=== PATIENT | male | born 1995 | race American Indian/Alaskan Native ===

== ENCOUNTER 2020-08-26 11:22 | Emergency (ER) | payer MEDICAID ==
--- NOTE | 2020-08-26 12:05 | XRay Report ---
RIGHT FINGER(S) 3 VIEW(S) INDICATION / CLINICAL INFORMATION: finger lac COMPARISON: None available. FINDINGS: BONES / JOINT(S): Tiny osseous fragment at the terminal tuft of the forefinger distal phalanx consist ent with an acute mildly displaced fracture. No dislocation. No significant arthritis. SOFT TISSUES: Right distal forefinger laceration with edema and adjacent bandaging. ADDITIONAL FINDINGS: None. Signer Name: Sandro Salcido MD Signed: 08/26/2020 12:01 PM Workstation Name: [id number]
--- NOTE | 2020-08-26 12:14 | Emergency Department Report ---
Blank Doc - Documentation Documentation: Patient presents with right index laceration with deformity noted to the index finger. Family member stated it happened prior to arrival today from a bed. Patient is mentally delayed and unable to answer questions or speak. Family member denies patient being up-to-date with tetanus. 1- This initial assessment/diagnostic orders/clinical plan/ treatment(s) is/are subject to change based on pt's health status, clinical progression and re- assessment by fellow clinical providers in the ED. Further treatment and workup at subsequent clinical provers discretion. Patient/guardians urged not to elope from ED as their condition may be serious if not clinically assessed and managed. 2-tetanus 3-xray
[2020-08-26 12:24] VITALS: BP 121/74
[2020-08-26] MEDS ORDERED: TETANUS,DIPH,PERTUSS(ACELL) VACCINE 0.5 ML SYRINGE IM ONE (14:27)
--- NOTE | 2020-08-26 19:48 | Emergency Department Report ---
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 Mom was able to control yesterday but when she changed the bandages this morning states that the bleeding restarted and she has been unable to stop it open to this point so she decided to come in for further evaluation and treatment options. Tetanus shot not up-to-date report no bite to the MD Complaint: Injury to:: right, finger -: days(s) (Occurred yesterday) Improves With: none Worsens With: none Associated Symptoms: denies other symptoms - Related Data Previous Rx's Medication Instructions Recorded Last Taken Type cephALEXin [Keflex] 500 mg PO Q6HR #40 capsule 08/26/20 Unknown Rx Allergies Allergy/AdvReac Type Severity Reaction Status Date / Time No Known Allergies Allergy Verified 08/26/20 12:23 ED Review of Systems ROS: Stated complaint: RT INDEX FINGER Other details as noted in HPI Comment: All other systems reviewed and negative ED Past Medical Hx - Social History Smoking Status: Never Smoker Substance Use Type: None - Medications Home Medications: Home Medications Medication Instructions Recorded Confirmed Last Taken Type cephALEXin [Keflex] 500 mg PO Q6HR #40 capsule 08/26/20 Unknown Rx ED Physical Exam - General Limitations: Other General appearance: alert, in no apparent distress - Head Head exam: Present: atraumatic, normocephalic - Eye Eye exam: Present: normal appearance, PERRL, EOMI Pupils: Present: normal accommodation - ENT ENT exam: Present: normal exam, normal orophraynx, mucous membranes moist, TM's normal bilaterally - Neck Neck exam: Present: normal inspection, full ROM - Respiratory Respiratory exam: Present: normal lung sounds bilaterally. Absent: respiratory distress, wheezes, rales, chest wall tenderness, accessory muscle use, decreased breath sounds - Cardiovascular Cardiovascular Exam: Present: regular rate, normal rhythm. Absent: systolic murmur, diastolic murmur, rubs, gallop - GI/Abdominal GI/Abdominal exam: Present: soft, normal bowel sounds - Rectal Rectal exam: Present: deferred - Extremities Exam Extremities exam: Present: normal inspection, full ROM, tenderness, normal capillary refill - Expanded Upper Extremity Exam Right Shoulder Exam: Present: normal inspection, full ROM Upper Arm exam: Present: normal inspection, full ROM Hand Wrist exam: Present: tenderness, swelling, laceration (Some bleeding noted), nail avulsion Hand L/R Back: 1 - Partial avulsion laceration - Back Exam Back exam: Present: normal inspection. Absent: tenderness, CVA tenderness (R), CVA tenderness (L), muscle spasm - Neurological Exam Neurological exam: Present: alert, oriented X3, CN II-XII intact, normal gait - Psychiatric Psychiatric exam: Present: normal affect, normal mood. Absent: anxious, flat affect - Skin Skin exam: Present: warm, dry, intact, normal color. Absent: rash ED Course Vital Signs 08/26/20 12:23 Temperature 98.1 F Pulse Rate 82 Respiratory 12 Rate Blood Pressure 121/74 O2 Sat by Pulse 98 Oximetry ED Medical Decision Making - Radiology Data Radiology results: report reviewed Medical [address] [address] XRay Report Signed Patient: MARKUS MINA MR#: [id number] 4 : 1995 Acct:[id number] Age/Sex: 24 / M ADM Date: 08/26/20 Loc: ED Attending Dr: Ordering Physician: ROXI AMAYA NP Date of Service: 08/26/20 Procedure(s): XR finger(s) 2+V RT Accession Number(s): [id number] cc: ROXI AMAYA NP Fluoro Time In Minutes: RIGHT FINGER(S) 3 VIEW(S) INDICATION / CLINICAL INFORMATION: finger lac COMPARISON: None available. FINDINGS: BONES / JOINT(S): Tiny osseous fragment at the terminal tuft of the forefinger distal phalanx consistent with an acute mildly displaced fracture. No dislocation. No significant arthritis. SOFT TISSUES: Right distal forefinger laceration with edema and adjacent bandaging. ADDITIONAL FINDINGS: None. Signer Name: Ariel Salcido MD Signed: 08/26/2020 12:01 PM Workstation Name: [id number] Transcribed By: Dictated By: RAIEL SALCIDO III Electronically Authenticated By: ARIEL SALCIDO III Signed Date/Time: 08/26/20 1201 DD/ 1200 TD/TT: Print Cancel - Medical Decision Making 24-year-old F Nepalese male status post crush injury to the right finger resulting in a tuft fracture making this an open fracture he was treated with a gram of Ancef in conjunction with prescription for home. The wound was irrigated cleaned and bandage for follow-up with Ortho. Injury occurred over 30 hours ago as it is an avulsion type tuft fracture no laceration repair involved Critical care attestation.: If time is entered above; I have spent that time in minutes in the direct care of this critically ill patient, excluding procedure time. ED Disposition Clinical Impression: Finger laceration with complication, Fracture, finger, distal phalanx Disposition: DC- TO HOME OR SELFCARE Is pt being admited?: No Does the pt Need Aspirin: No Condition: Stable Instructions: Laceration Care, Adult, Laceration Care, Adult, [id number], Finger Fracture, Adult, [id number] Prescriptions: cephALEXin [Keflex] 500 mg PO Q6HR #40 capsule Referrals: PRIMARY CARE, [Primary Care Provider] - 3-5 Days
[2020-08-26] MEDS ORDERED: ceFAZolin 1 GM VIAL IM STA (20:00)
== END 2020-08-26 21:00 | disposition home or self-care (01) ==
LOC: ED 11:22
DX: S62.630A Displaced fracture of distal phalanx of right index finger, initial encounter for closed fracture (principal); S61.210A Laceration without foreign body of right index finger without damage to nail, initial encounter; Z79.899 Other long term (current) drug therapy; X58.XXXA Exposure to other specified factors, initial encounter; Y93.89 Activity, other specified; Y92.89 Other specified places as the place of occurrence of the external cause; Y99.8 Other external cause status
CPT/HCPCS: 29130; 73140; 90471; 90715; 96372; 99283; J0690